=== PATIENT | female | born 1995 | race Two or more races ===

== ENCOUNTER 2018-04-28 21:12 | Emergency (ER) | payer MEDICAID ==
[~2018-04-28] VITALS: Ht 160 cm; Wt 59.0 kg
--- NOTE | 2018-04-28 21:23 | NUR ---
pt ambulatory w/ steady gait, c/o lower pelvic pain, "feels like I'm starting my period", cramping pain x3 days, denies any N/V, no VB, unsure if , lmp 04/07/18, A3. AOX4, afebrile, w/ resp even & unlabored, tachycardic, denies any cp or sob w/ nad noted. pt in gown, pending further evmeghan SPEAR.
--- NOTE | 2018-04-28 21:28 | NUR ---
pt ambulatory w/ steady gait to restroom. Urine obtained & sent to lab.
[2018-04-28 21:50] LABS: APPEARANCE,URINE SL CLOUDY (CLEAR); BILIRUBIN,URINE NEGATIVE (NEGATIVE); BLOOD, URINE NEGATIVE Ery/uL (NEGATIVE); COLOR,URINE YELLOW (YELLOW); KETONES,URINE NEGATIVE (NEGATIVE); LEUKOCYTE ESTERASE ,URINE NEGATIVE (NEGATIVE); NITRITE, URINE NEGATIVE (NEGATIVE); PH,URINE 6.5 (5.0-8.0); PROTEIN,URINE NEGATIVE (NEGATIVE); UGLUCOSE NEGATIVE (NEGATIVE)
[2018-04-28 21:57] LABS: RBC,URINE 0-2 /HPF (0-2); WBC,URINE 0-2 /HPF (0-3)
[2018-04-28 21:58] LABS: BACTERIA,URINE Few /HPF (None Seen); SQUAMOUS EPITHELIAL CELL,UR Few /HPF (None Seen)
--- NOTE | 2018-04-28 22:27 | NUR ---
associate technician at bedside for blood draw.
[2018-04-28 22:42] LABS: BASOPHILS # (AUTO) 0.1 /CMM (0.0-0.2); BASOPHILS % (AUTO) 0.8 % (0.0-2.0); EOSINOPHILS % (AUTO) 3.3 % (0.0-6.0); HEMATOCRIT 41 % (33-45); HEMOGLOBIN 13.6 g/dL (11.5-14.8); LYMPHOCYTES # (AUTO) 2.4 /CMM (0.8-4.8); LYMPHOCYTES % (AUTO) 32.5 % (20.0-44.0); MEAN CORPUSCULAR HGB CONC 34 g/dl (31.0-36.0); MEAN CORPUSCULAR VOLUME 97 fL (82-100); MONOCYTES # (AUTO) 0.4 /CMM (0.1-1.30); MONOCYTES % (AUTO) 5.2 % (2.0-12.0); NEUTROPHILS # (AUTO) 4.4 /CMM (1.8-8.9); NEUTROPHILS % (AUTO) 58.2 % (43.0-81.0); PLATELET COUNT (AUTO) 309 /CMM (150-450); RED BLOOD CELL COUNT(AUTO) 4.19 MIL/uL (4.0-5.2); WHITE BLOOD COUNT (AUTO) 7.5 K/uL (4.3-11.0)
[2018-04-28 22:46] LABS: CALCIUM, SERUM 9.5 mg/dL (8.5-10.1); CREATININE 0.8 mg/dL (0.6-1.3); POTASSIUM 3.7 mmol/L (3.5-5.1)
--- NOTE | 2018-04-28 22:48 | NUR ---
US tech at bedside for US pelvis.
[2018-04-28 22:56] LABS: ALBUMIN 3.9 g/dL (3.4-5.0); BILIRUBIN,TOTAL 0.3 mg/dL (0.2-1.0); TOTAL PROTEIN, SERUM 7.4 g/dL (6.4-8.2)
--- NOTE | 2018-04-28 23:21 | NUR ---
ROD Galvez at bedside for update on pt status.
--- NOTE | 2018-04-28 23:28 | NUR ---
Patient ambulatory w/ steady gait, resp even & unlabored w/ nad noted. Patient discharged to home in stable condition. Written and verbal after care instructions given along w/ prescription for tylenol & copy of lab results. Patient verbalizes understanding of instruction.
[2018-04-28 23:30] VITALS: BP 124/96
== END 2018-04-28 23:31 | disposition home or self-care (01) ==
LOC: ER 21:31
DX: O26.891 Other specified pregnancy related conditions, first trimester (principal); R10.2 Pelvic and perineal pain; Z3A.01 Less than 8 weeks gestation of pregnancy; Z88.6 Allergy status to analgesic agent
CPT/HCPCS: 36415; 76856-TC; 80053-TC; 81000-TC; 84702-TC; 84703-TC; 85025-TC